=== PATIENT | female | born 1990 | race Two or more races ===

== ENCOUNTER → 2018-01-10 14:19 | Outpatient (CLI) | payer SELFPAY ==
[2018-01-10 17:46] LABS: Chlamydia Trachomatis by PCR Negative (Negative); Neisserai gonorrhoeae by PCR Negative (Negative); Probe Check PASS; Sample Adequacy Control PASS; Specimen Processing Control PASS
[2018-01-17 12:12] LABS: HPV Reflexed? NOT INDICATED
== END ==
PROVIDERS: Visit Provider Obstetrics & Gynecology
DX: Z34.81 Encounter for supervision of other normal pregnancy, first trimester (principal); Z12.4 Encounter for screening for malignant neoplasm of cervix; Z11.3 Encounter for screening for infections with a predominantly sexual mode of transmission
CPT/HCPCS: 87491; 87591; 88175; G0145

== ENCOUNTER → 2018-02-05 11:26 | Outpatient (CLI) | payer SELFPAY ==
[2018-02-05 12:21] LABS: Absolute Lymphocyte Count 2.05 X10^3/ul (0.83-4.51); Absolute Neutrophil Count 5.3 X10^3/uL (2.0-7.7); Basophil# 0.02 X10^3/uL; Basophil% 0.2 % (0-1); Color, Urine Yellow (Yellow); Eosinophil# 0.17 X10^3/uL; Eosinophils% 2.1 % (0-5); Glucose, Dipstick Normal (Normal); Hematocrit 40.7 % (37-47); Hemoglobin 13.2 g/dl (12.0-15.0); Ketone-Dipstick 5 mg/dl (Negative); Leukocyte Esterase-Dipstick 25 /ul (Negative); Lymphocyte # 2.05 X10^3/ul (4.0); Lymphocyte % 25.2 % (19-41); Mean Corp Hgb Conc 32.4 g/gl (32-36); Mean Corpuscular Hgb 24.8 pg (27.0-32.0); Mean Corpuscular Volume 76.5 fL (81-99); Mean Platelet Vol. 10.4 fl (6.2-12.0); Monocyte# 0.57 X10^3/uL; Neutrophil % 65.4 % (47-70); Nitrite-Dipstick Negative (Negative); Occult Blood-Urine Negative /ul (Negative); Platelet Count 273 K/mm3 (150-450); Protein-Dipstick 15 mg/dl (Negative); RBC Distribution Width CV 15.6 % (11.6-14.6); Red Blood Count 5.32 M/mm3 (4.2-5.4); Specific Gravity, Urine 1.015 (1.002-1.030); Urine Bilirubin Dipstick Negative (Negative); Urine Clarity Sl. Cloudy (Clear); Urine Urobilinogen 1 mg/dl (Normal); White Blood Count 8.1 K/mm3 (4.4-11.0)
[2018-02-05 12:25] LABS: POSITIVE COUNT NO; POSITIVE DIFFERENTIAL NO; POSITIVE MORPHOLOGY NO
[2018-02-05 12:42] LABS: Hemoglobin A1c 5.4 % (4.2-6.3)
[2018-02-05 12:50] LABS: Thyroid Stim Hormone (TSH) 1.43 uIU/mL (0.358-3.74)
[2018-02-05 13:33] LABS: HIV - WCH Non-Reactive (Nonreactive); Rubella IgG 79.5 IU/mL
[2018-02-06 09:48] LABS: HEPATITIS B SURFACE AG Negative (Negative); Hep C Antibodies <0.1 s/co ratio (0.0-0.9)
[2018-02-09 02:59] LABS: Prenatal RPR NONREACTIVE (NONREACTIVE)
== END ==
PROVIDERS: Visit Provider Obstetrics & Gynecology
DX: Z34.81 Encounter for supervision of other normal pregnancy, first trimester (principal); Z86.32 Personal history of gestational diabetes
CPT/HCPCS: 36415; 81002; 83036; 84443; 85025; 86703; 86762; 86803; 87340

== ENCOUNTER → 2018-05-30 11:36 | Outpatient (CLI) | payer SELFPAY ==
[2018-05-30 15:49] LABS: Hematocrit 37.4 % (37-47); Hemoglobin 11.7 g/dl (12.0-15.0); Mean Corp Hgb Conc 31.3 g/gl (32-36); Mean Corpuscular Hgb 24.6 pg (27.0-32.0); Mean Corpuscular Volume 78.7 fL (81-99); Mean Platelet Vol. 10.5 fl (6.2-12.0); Platelet Count 280 K/mm3 (150-450); RBC Distribution Width CV 15.9 % (11.6-14.6); RBC Distribution Width SD 45.4 fl (35.1-43.9); Red Blood Count 4.75 M/mm3 (4.2-5.4); White Blood Count 9.2 K/mm3 (4.4-11.0)
[2018-05-30 15:50] LABS: Scan Indicated on CBC? Y/N NO
[2018-05-30 15:55] LABS: Glucose Challenge Gest 1H 50g 149 mg/dL (70-140)
--- OUTSIDE RECORDS SUMMARY | 2018-08-01 09:13 | XMS RPT_ITS ---
:1990 Author Organization OHIP Care Team Providers Name Role Phone Carole Villarreal Attending Unavailable Carole Villarreal Attending Unavailable Carole Villarreal Attending Unavailable PROBLEMS PROBLEMS DATE TYPE CONDITION / CODE ATTENDING STATUS SOURCE 05/30/2018 Unknown Z34.82 - Encounter Carole Villarreal Active [place] for supervision of [facility] other normal Hospital , second Repository trimester / Z34.82(ICD-10) 02/05/2018 Unknown Z34.81 - Encounter Carole Villarreal Active [place] for supervision of Community other normal Hospital , first Repository trimester / Z34.81(ICD-10) 01/12/2018 Unknown Z12.4 - Encounter Carole Villarreal Active [place] for screening for Community malignant neoplasm [facility] / Repository Z12.4(ICD-10) 01/12/2018 Unknown Z11.3 - Encounter Carole Villarreal Active [place] for screening for Community infections with a Hospital [facility] Repository sexual mode of transmission / Z11.3(ICD-10) PROCEDURES PROCEDURES No Procedure Records FoundRESULTS RESULTS CBC-COMPLETE BLOOD CNT Collected: 05/30/2018 Status: F Source: JOSE NO DIFF 11:33 AM [facility] REPOSITORY TYPE CODE TESTS RESULT OUT OF RANGE REFERENCE UNITS LAB L100.1000 4.4-11.0 K/mm3 Normal WBC 9.2 LAB L100.1200 4.2-5.4 M/mm3 Normal RBC 4.75 LAB L100.1300 12.0-15.0 g/dl Low HGB 11.7 LAB L100.1400 37-47 % Normal HCT 37.4 LAB L100.1500 81-99 fL Low MCV 78.7 LAB L100.1600 27.0-32.0 pg Low MCH 24.6 LAB L100.1700 32-36 g/gl Low MCHC 31.3 LAB L100.1810 11.6-14.6 % High RDW CV 15.9 LAB L100.1820 35.1-43.9 fl High RDW SD 45.4 LAB L100.1900 150-450 K/mm3 Normal PLT 280 LAB L100.2000 6.2-12.0 fl Normal MPV 10.5 Performed By: #### L100.0500 #### [facility] [address] [place], [address] GLUCOSE CHALLENGE GEST Collected: 05/30/2018 Status: F Source: DE LANCEY 1H 50G 11:33 AM [facility] REPOSITORY TYPE CODE TESTS RESULT OUT OF RANGE REFERENCE UNITS LAB L501.0250 70-140 mg/dL High GLU GEST 149 50g 1H Performed By: #### L501.0250 #### [facility] [address] [place], [address] CBC W/DIFF, AUTOMATED Collected: 02/05/2018 Status: F Source: JOSE 11:30 AM [facility] REPOSITORY TYPE CODE TESTS RESULT OUT OF RANGE REFERENCE UNITS LAB L100.1000 4.4-11.0 K/mm3 Normal WBC 8.1 LAB L100.1200 4.2-5.4 M/mm3 Normal RBC 5.32 LAB L100.1300 12.0-15.0 g/dl Normal HGB 13.2 LAB L100.1400 37-47 % Normal HCT 40.7 LAB L100.1500 81-99 fL Low MCV 76.5 LAB L100.1600 27.0-32.0 pg Low MCH 24.8 LAB L100.1700 32-36 g/gl Normal MCHC 32.4 LAB L100.1810 11.6-14.6 % High RDW CV 15.6 LAB L100.1820 35.1-43.9 fl Normal RDW SD 43.0 LAB L100.1900 150-450 K/mm3 Normal PLT 273 LAB L100.2000 6.2-12.0 fl Normal MPV 10.4 LAB L100.2100 47-70 % Normal NEUT% 65.4 LAB L100.2200 19-41 % Normal LY% 25.2 LAB L100.2300 0-10 % Normal MONO% 7.0 LAB L100.2400 0-5 % Normal EO% 2.1 LAB L100.2500 0-1 % Normal BASO% 0.2 LAB L100.2550 0.0-0.9 % Normal IM GRAN % 0.100 Result Comment: IG% - Immature Granulocytes (promyelocytes, myelocytes and metamyelocytes) > 1% indicates that a LEFT SHIFT is Present. LAB L100.2620 2.0-7.7 X10 3/uL Normal Absolute Neut 5.3 LAB L100.2720 0.83-4.51 X10 3/ul Normal Absolute Lymph 2.05 Performed By: #### L100.0100 #### [facility] [address] [place], [place], [address] URINALYSIS, ROUTINE Collected: 02/05/2018 Status: F Source: JOSE (DIPSTICK) 11:30 AM [facility] REPOSITORY Order Comment: How was Urine Obtained? Urine, Random TYPE CODE TESTS RESULT OUT OF RANGE REFERENCE UNITS LAB L400.3000 Yellow COLOR Normal Yellow LAB L400.3050 Clear Normal CLARITY Sl. Cloudy LAB L400.3200 Normal mg/dl Normal GLUCOSE, UR Normal LAB L400.3300 Negative mg/dL Normal BILIRUBIN URINE Negative LAB L400.3400 Negative mg/dl High 5 KETONE UR LAB L400.3465 1.002-1.030 Normal SP.GR. DIPSTX 1.015 LAB L400.3550 5.0 - 8.0 pH UR Normal 7.0 LAB L400.3600 Negative mg/dl High PROT 15 DIPSTX LAB L400.3700 Normal mg/dl High 1 UROBILI LAB L400.3750 Negative Normal NITRITE UR Negative LAB L400.3780 Negative /ul Normal OCCULT BLOOD-UR Negative LAB L400.3800 Negative /ul High LEUK 25 ESTERASE Performed By: #### L400.2010 #### [facility] [address] [facility] [place], [place], [id number] HEMOGLOBIN A1C Collected: 02/05/2018 Status: F Source: DE LANCEY 11:30 AM [facility] REPOSITORY TYPE CODE TESTS RESULT OUT OF RANGE REFERENCE UNITS LAB L501.9985 4.2-6.3 % Normal HGB A1C 5.4 Performed By: #### L501.9985 #### [facility] [address] [facility] [place], [place], [address] THYROID STIM HORMONE Collected: 02/05/2018 Status: F Source: DE LANCEY (TSH) 11:30 AM [facility] REPOSITORY TYPE CODE TESTS RESULT OUT OF RANGE REFERENCE UNITS LAB L501.9520 0.358-3.74 uIU/mL Normal TSH 1.43 Performed By: #### L501.9520 #### [facility] [address] [place], [address] RUBELLA IGG Collected: 02/05/2018 Status: F Source: JOSE 11:30 AM [facility] REPOSITORY TYPE CODE TESTS RESULT OUT OF RANGE REFERENCE UNITS LAB L509.4000 IU/mL Normal Rubella IgG 79.5 Result Comment: Antibody results Interpretation of Immune Status < 5 IU/ml Presumed Non-immune 5 - < 10 IU/ml Equivocal > or = 10 IU/ml Presumed Immune Performed By: #### L509.4000, L3890.6005 #### [facility] [address] [place] [address]. [place], [place], [address] HIV - WCH Collected: 02/05/2018 Status: F Source: JOSE 11:30 AM [facility] REPOSITORY TYPE CODE TESTS RESULT OUT OF RANGE REFERENCE UNITS LAB L3890.6005 Nonreactive Normal HIV - WCH Non-Reactive Performed By: #### L509.4000, L3890.6005 #### [facility] [place], [address] T AND S-NO Collected: 02/05/2018 Status: F Source: DE LANCEY CHARGE W/PNP 11:30 AM [facility] REPOSITORY Order Comment: Reason for Type AND Screen/Red Cells: Surgery? N TYPE CODE TESTS RESULT OUT OF RANGE REFERENCE UNITS LAB B10.0800 B Normal BLOOD POSITIVE TYPE GEL LAB B100.4050 Normal Ab SCREEN NEGATIVE GEL Performed By: #### B100.7550 #### [facility] [address] [facility] [place], [place], [address] HEPATITIS B SURFACE Collected: 02/05/2018 Status: F Source: JOSE AG 11:30 AM [facility] REPOSITORY TYPE CODE TESTS RESULT OUT OF RANGE REFERENCE UNITS LAB L3100.0400 Negative Normal HB Negative SURF AG Result Comment: Performed at: [facility] [id number] Power Grader Operator: Juan Francisco Zurita PhD, Phone: [phone] Performed By: #### L3100.0390, L3100.0625 #### [facility] (refer to report for specific site) refer to report for address and phone number HEPATITIS C ANTIBODIES Collected: 02/05/2018 Status: F Source: JOSE 11:30 AM [facility] REPOSITORY TYPE CODE TESTS RESULT OUT OF RANGE REFERENCE UNITS LAB L3100.0650 0.0-0.9 s/co ratio Normal HEP C AB <0.1 Result Comment: Negative: < 0.8 Indeterminate: 0.8 - 0.9 Positive: > 0.9 The CDC recommends that a positive HCV antibody result be followed up with a HCV Nucleic Acid Amplification test (407533). Performed By: #### L3100.0390, L3100.0625 #### [facility] (refer to report for specific site) refer to report for address and phone number RPR Collected: 02/05/2018 Status: F Source: JOSE 11:30 AM [facility] REPOSITORY TYPE CODE TESTS RESULT OUT OF REFERENCE UNITS RANGE LAB L700.5100 NONREACTIVE Normal RPR NONREACTIVE Performed By: #### L700.5100 #### [facility] [address] [place] [address]. [place], [place], [address] CT/NG WCH BY PCR Collected: 01/10/2018 Status: F Source: JOSE 10:45 AM [facility] REPOSITORY TYPE CODE TESTS RESULT OUT OF RANGE REFERENCE UNITS LAB L8200.2100 Negative Normal Chlam Negative Trac PCR LAB L8200.2200 Negative Normal NG by Negative PCR Performed By: #### L8200.2000 #### [facility] [facility] [place], [place], [address] PAP I-G W/RFX HRHPV Collected: 01/10/2018 Status: F Source: JOSE 10:45 AM [facility] REPOSITORY Order Comment: CYTOLOGY INFORMATION: - CLINICAL INFORMATION: - DATE LMP/MENOPAUSE: NO LMP GIVEN LMP - COLLECTION VIAL: Thin Prep Vial - NURSE AIDE SOURCE: CERVICAL/ENDOCERVICAL - COLLECTION TECHNIQUE: BRUSH/SPATULA Specimen Comment: [id number] Specimen Comment: No. of containers..01 ThinPrep Vial TYPE CODE TESTS RESULT OUT OF RANGE REFERENCE UNITS LAB L7400.0800 . Normal DIAGN Comment Result Comment: NEGATIVE FOR INTRAEPITHELIAL LESION AND MALIGNANCY. CELLULAR CHANGES ASSOCIATED WITH INFLAMMATION ARE PRESENT. LAB L7400.0900 . Normal ADEQ Comment Result Comment: Satisfactory for evaluation. Endocervical and/or squamous metaplastic cells (endocervical component) are present. LAB L7400.1400 . Normal PERFORM Comment Result Comment: Praveen Richard, Machine Try Out Setter (ASCP) LAB L7400.2575 . Normal TEST METHOD Comment Result Comment: This liquid based ThinPrep(R) pap test was screened with the use of an image guided system. LAB L7400.2600 . Normal . COMM LAB L7400.2700 . Normal PAPSMR Comment Result Comment: The Pap smear is a screening test designed to aid in the detection of premalignant and malignant conditions of the uterine cervix. It is not a diagnostic procedure and should not be used as the sole means of detecting cervical cancer. Both false-positive and false-negative reports do occur. LAB L7400.2800 . Normal HPV RFLX Comment Result Comment: The HPV DNA reflex criteria were not met with this specimen result therefore, no HPV testing was performed. Performed at: - [facility] [id number] Power Grader Operator: Ruth Le MD, Phone: [phone] Performed By: #### L7400.0350 #### [facility] (refer to report for specific site) refer to report for address and phone number ALLERGIES ALLERGIES No Allergies Records FoundENCOUNTERS ENCOUNTERS ADMIT/DISCHARGE ACCOUNT ADMITTING ENCOUNTER LOCATION SOURCE NUMBER CLASS 05/30/2018 [id number] Ambulatory Jsoe [place] [facility] ing:WOBLAB Repository 02/05/2018 [id number] Ambulatory [place] [facility] ing:WOBLAB Repository 01/10/2018 [id number] Ambulatory [place] [facility] ing:[facility] Repository PAYERS PAYERS ENCOUNTER GUARANTOR PAYER SUBSCRIBER SOURCE 05/30/2018 MEENAKSHI Primary NOT GIVENUNK [place] [id number] [place] Insurance:SELF PAY [facility] [address] [id number]: [phone] Number: Effective Repository [phone] () Date:2018-05-30 02/05/2018 Meenakshi Primary NOT GIVENUNK [place] [id number] [place] Insurance:SELF PAY [facility] [address] [address]Nln: [phone] Number: Effective Repository [phone] () Date:2018-02-05 01/10/2018 Meenakshi Primary NOT GIVENUNK [place] [id number] [place] Insurance:SELF PAY [facility] [address] [address]Oee: [phone] Number: Effective Repository [phone] () Date:2018-01-10
== END ==
PROVIDERS: Visit Provider Obstetrics & Gynecology
DX: Z34.82 Encounter for supervision of other normal pregnancy, second trimester (principal)
CPT/HCPCS: 36415; 82950; 85027

== ENCOUNTER → 2018-06-05 10:00 | Outpatient (CLI) | payer SELFPAY ==
[2018-06-05 10:52] LABS: Glucose GTT-Gestation. Fasting 91 mg/dL (<105)
[2018-06-05 12:05] LABS: Glucose GTT-Gestational 1 Hr 176 mg/dL (<190)
[2018-06-05 13:00] LABS: Glucose GTT-Gestational 2 Hr 145 mg/dL (<165)
[2018-06-05 14:30] LABS: Glucose GTT-Gestational 3 Hr 120 L (<145)
== END ==
PROVIDERS: Family Provider Family Medicine; PCP Family Medicine; Referring Provider Obstetrics & Gynecology; Visit Provider Obstetrics & Gynecology
DX: O24.912 Unspecified diabetes mellitus in pregnancy, second trimester (principal); Z3A.00 Weeks of gestation of pregnancy not specified
CPT/HCPCS: 36415; 82951; 82952

== ENCOUNTER 2018-06-30 13:01 | Emergency (ER) | payer SELFPAY ==
[2018-06-30 13:02] VITALS: BP 134/77; PULSE 110; RESP 18; TEMP 36.2; O2SAT 96; BMI 41.7
--- NOTE | 2018-06-30 13:13 | RAD_ITS ---
STUDY: X-RAY CHEST REASON FOR EXAM: Female, 28 years old. Cough TECHNIQUE: PA and lateral views of the chest. COMPARISON: None. FINDINGS: The lungs are clear and expanded. There is no demonstrated pleural abnormality. Normal size heart. Normal mediastinum and adolfo. Normal visualized pulmonary arteries. Normal visualized aortic arch and descending thoracic aorta. Normal visualized thoracic spine. Normal visualized ribs, clavicles, and shoulders. There is no demonstrated abnormality of the visualized soft tissue structures of the upper abdomen. RAD/Chest PA and Lateral IMPRESSION: No acute cardiopulmonary process. Electronically Signed: Edilson Caballero MD at 13:50 EST , Service support ,
--- NOTE | 2018-06-30 13:15 | ED.VISSUMM ---
- ER Visit Summary Date of Service: 06/30/18 Chief Complaint: Cough, shortness of breath History of Present Illness: The patient is a 28 F presents to the emergency department cough and shortness of breath. Patient symptoms began last weekend. She states that she had fevers, chills, myalgias. She states over the past 3 days, the fever stopped, but she had worsening cough. She had scant sputum. She states that she does feel that she can catch her breath. She denies any chest pain. She does admit to some change in voice and feels like she may have laryngitis. She denies any current sore throat, trouble speaking, or trouble swallowing. Physical Examination: Vital signs reviewed General: Well-nourished, well-developed Head: Normocephalic, atraumatic Eyes: Pupils equal and reactive, extraocular muscles intact Neck, supple, no lymphadenopathy Heart: Regular rate and rhythm Respiratory: No distress, clear bilaterally Abdomen: Soft, nontender, nondistended, no peritoneal signs Back: Nontender Extremities: Nontender, no edema, no cords Skin: Normal color no rash Neuro: Alert and oriented, no focal or lateralizing deficits Test Results: [] Emergency Department Course and Treatment: The patient's symptoms do seem viral in nature. She did have a scant wheeze. She was given a DuoNeb with improvement of aeration. Her chest x-ray shows no focal infiltrate of process. She has no trismus. She has no stridor. I do feel that this is all viral. I am going to continue her on Decadron and an inhaler. I do feel that she is safe for outpatient therapy. The patient is comfortable with this plan of care. Treatment Plan: [] Disposition: Discharge Impression: Viral URI with bronchospasm This note was generated with [employer] dictation software. It may contain incorrect words, spelling, and punctuation that were not noted in review of the chart prior to signing ED Disposition - Plan for ED Patient: Disposition: Home or Assisted Living Instructions: ED Upper Resp Infec No Abx Tx Prescriptions: RX: Albuterol Inhaler [Ventolin Hfa] 2 puff INHALATION Q4H PRN PRN #1 inhaler PRN Reason: Wheezing Dexamethasone [Decadron] 4 mg PO BIDCM #6 tab Referrals: Kostas Collazo [Primary Care Provider] -
[2018-06-30] MEDS: Ipratropium/Albuterol Sulfate 3 ML AMPUL.NEB INHALATION (13:40)
[2018-06-30 13:42] VITALS: PULSE 107; RESP 16; O2SAT 97
[2018-06-30 14:36] VITALS: PULSE 101; RESP 18; O2SAT 97
== END 2018-06-30 14:36 | disposition home or self-care (01) ==
PROVIDERS: Emergency Provider Emergency Medicine; Family Provider Family Medicine; PCP Family Medicine
DX: J06.9 Acute upper respiratory infection, unspecified (principal); J98.01 Acute bronchospasm
CPT/HCPCS: 71046; 94640; 99283

== ENCOUNTER → 2018-07-11 11:37 | Outpatient (CLI) | payer SELFPAY ==
[2018-06-30 13:02] VITALS: BMI 41.7
[2018-07-11 14:37] LABS: AST(SGOT) 24 U/L (15-37); Alanine Aminotransfer ALT/SGPT 43 U/L (13-56); Albumin, Serum 2.8 g/dL (3.2-5.0); Alkaline Phosphatase 111 U/L (45-117); Globulin 4.5 g/dL (2.2-4.2); Protein, Total 7.3 g/dL (6.4-8.2)
== END ==
PROVIDERS: Visit Provider Obstetrics & Gynecology
DX: O26.893 Other specified pregnancy related conditions, third trimester (principal)
CPT/HCPCS: 36415; 80076

== ENCOUNTER → 2018-07-25 14:09 | Outpatient (CLI) | payer SELFPAY ==
[2018-06-30 13:02] VITALS: BMI 41.7
== END ==
PROVIDERS: Visit Provider Obstetrics & Gynecology
DX: Z36.85 Encounter for antenatal screening for Streptococcus B (principal)
CPT/HCPCS: 87081

== ENCOUNTER 2018-08-11 01:34 | Outpatient (CLI) | payer SELFPAY ==
[2018-08-11 02:41] VITALS: BMI 43.1
--- NOTE | 2018-08-13 08:44 | OB.TRI.NOTE ---
History of Present Illness Date of Service: 08/11/18 Reason For Visit: R/O LABOR Date of Service: 08/11/18 Final TYLER: 08/22/18 Gestational age: 38 Weeks and 3 Days History of Present Illness: 38+ week intrauterine with contractions. Presents to rule out labor. Denies any leaking of fluid. Allergies No Known Allergies Allergy (Verified 06/30/18 13:02) NST - FHR Rate Baby A NST Reactive:: Yes FHR Category:: Category I Impression/Plan 38+ week intrauterine with false labor. After monitoring no change in cervix. Reactive nonstress test. Released to home with routine instructions for follow-up if contractions become name stronger or rupture of membrane occurs.
== END 2018-08-11 05:05 | disposition home or self-care (01) ==
LOC: WPOUT 02:06 → WP 02:07
PROVIDERS: Visit Provider Obstetrics & Gynecology
DX: O47.1 False labor at or after 37 completed weeks of gestation (principal); Z3A.38 38 weeks gestation of pregnancy
CPT/HCPCS: 59025; 59050; 99218; G0378

== ENCOUNTER 2018-08-17 06:46 | Inpatient (IN) | payer SELFPAY ==
[2018-08-17 07:29] VITALS: BMI 43.7
[2018-08-17] MEDS: Lactated Ringers 1,000 ML 50 ML IV ×3 (07:45→18:23)
[2018-08-17] MEDS: Oxytocin 30 units/NS 500 ml 30 UNITS/500 ML IV.SOLN IV (08:08)
[2018-08-17 08:14] LABS: Absolute Lymphocyte Count 1.94 X10^3/ul (0.83-4.51); Absolute Neutrophil Count 5.1 X10^3/uL (2.0-7.7); Basophil# 0.01 X10^3/uL; Basophil% 0.1 % (0-1); Eosinophil# 0.11 X10^3/uL; Eosinophils% 1.4 % (0-5); Hematocrit 34.8 % (37-47); Hemoglobin 10.9 g/dl (12.0-15.0); Lymphocyte # 1.94 X10^3/ul (4.0); Mean Corp Hgb Conc 31.3 g/gl (32-36); Mean Corpuscular Hgb 22.5 pg (27.0-32.0); Mean Corpuscular Volume 71.9 fL (81-99); Mean Platelet Vol. 10.4 fl (6.2-12.0); Monocyte% 7.7 % (0-10); Neutrophil # 5.07 X10^3/uL (2.7-7.7); Neutrophil % 65.4 % (47-70); POSITIVE COUNT NO; POSITIVE DIFFERENTIAL NO; POSITIVE MORPHOLOGY NO; Platelet Count 275 K/mm3 (150-450); RBC Distribution Width SD 44.2 fl (35.1-43.9); Red Blood Count 4.84 M/mm3 (4.2-5.4); White Blood Count 7.8 K/mm3 (4.4-11.0)
--- NOTE | 2018-08-17 08:29 | PCM.PN.BLA ---
Progress Note LABOR PROGRESS NOTE Pt feeling poorly, nauseated / dizzy after IV start and blood drawn. IV fluids going position changes made. Afeb BP low EFM 150-160s avg with accels no decelerations UCs - no regular UCs noted CX: anterior, 2 cm/ 80/-3 Vtx well applied to cervix A/P: 39 2/7 wk induction. 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 Discussing his concerns re AROM. Advised AROM would not be performed unless safe to do so. AROM could be performed with benefit of progression of labor , sooner delivery, and less pitocin required. Did not AROM d/t patient's current BP, feeling dizzy, nauseated, etc. Spoke with RN to encourage adequate pitocin. AROM planned later with IUPC to guide pitocin prn.
--- NOTE | 2018-08-17 13:13 | PCM.PN.BLA ---
Progress Note LABOR PROGRESS NOTE Feeling more discomfort with UCs Considering nitrous oxide for labor pain. AVSS Pitocin at 12 miU/min EVM: 140-150s avg variability. Accels noted. Occasional mild variable with quick return UCs q 3-4 mins CX: 3/50/anterior and high Mod consistency AROM copious clear fluid. Pad placed A/P: 39 2/7 wk EGA Induction. children all with brittle hair syndrome. Planning to collect cord blood to send for testing Sees Dr Marce Martins outpatient. continue labor induction Anticipate .
--- NOTE | 2018-08-17 16:20 | PCM.PN.BLA ---
Progress Note 30 2/7 wk induction Uncomfortable , requesting epidural AVSS Pitocin at 12 mIU/min CX: deferred Last check per RN /-2 at 1530 Sitting at bedside breathing through UCs. EFM 140 - 150s avg variability Accels occasional variables UCs q 3- 4mins A/P: 39 2/7 wk induction Plans epidural now. Place epidural. Recheck when comfortable. continue Pitocin per protocol. if inadequate change, consider IUPC to track UC MVUs.
[2018-08-17] MEDS: fentaNYL-bupivacaine (epidural) 100 ML BAG EPIDURAL (16:44)
--- NOTE | 2018-08-17 17:15 | PCM.PN.BLA ---
Progress Note INDUCTION 39 2/7 wk Comfortable w/ epidural AVSS Pitocin at 12 miU/mIn EFM reassuring category I UCs q 3- 4minx CX; /765/-3 high. Vtx with caput A/P: 39 2/7 wk induction female. other children with brittle hair syndrome. Plans to send cord blood to Dr Marce Martins for testing this baby. IUPC and scalp lead placed. Continue Pitocin prn to adequate mVUs Position changes to facilitate rotation and descent. Anticipate .
[2018-08-17] MEDS: Amnioinfusion- 0.9% NS 1,000 ML IV.SOLN. 200 ML INTRA-UTER (19:05)
[2018-08-17] MEDS: Oxytocin 30 units/NS 500 ml 30 UNITS/500 ML IV.SOLN 334 UNITS IV (19:23)
--- NOTE | 2018-08-17 19:35 | DCINST_ITS ---
Discharge Diet: No Restrictions Return to work on:: 10/17/18 May shower in (days): 0 May resume sexual activity in: 4-6 weeks Call your doctor if your incision/area has: Sudden Increased Bleeding, Foul Smelling Discharge Call your doctor if you observe: Fever of 101 or Higher, Inability to urinate, Inability to have a bowel movement, Using more than one pad per hour, Shortness of breath, Chest pain, Calf discomfort, Uncontrolled pain Cleanse incision/area with: Soap & Water Additional Instructions: If you experience any of the following, contact your healthcare provider. * Bleeding that soaks a pad every hour for 2 hours * Fever 100.4 or higher * Unrelieved incision or abdominal pain * Swelling, redness, discharge or bleeding from your incision or episiotomy site * Your incision begins to separate * Problems urinating (including inability to urinate or burning while urinating). * Visual changes * Severe headache * Flu-like symptoms * Pain or redness in one of both of your breasts * Pain, warmth, tenderness or swelling in your legs, especially the calf area * Frequent nausea and vomiting * Symptoms of depression or anxiety If you experience any of the following, call 911 or go to the nearest Emergency Room. * Chest pain * Problems breathing * Seizure activity * Partial or complete paralysis of a body part, slurred speech, weakness or drooping of the face, or a sudden inability to walk or hold your balance Allergies/Adverse Reactions: Allergies No Known Allergies Allergy (Verified 06/30/18 13:02) Medications to take at Discharge Ibuprofen [Motrin] 600 mg PO Q6H PRN PRN #30 tab 08/17/18 The following prescriptions were given: Ibuprofen [Motrin] 600 mg PO Q6H PRN PRN #30 tab PRN Reason: pain or cramping Please Follow Up With: Carole Villarreal MD When: 6 weeks Primary Care Physician: Kostas Collazo [Primary Care Provider] - Test Results: Test results from this visit will be discussed in further detail at your follow- up appointment, if applicable. Proposed Discharge Date: 08/19/18
--- NOTE | 2018-08-17 19:38 | PCM.OPRPT ---
Vaginal Delivery Maternal Presentation: Medically Indicated Induction 39w2d ega admitted for induction of labor Method of Induction: Pitocin Amniotic Membrane Rupture Type: Artificial Rupture of Membrane time: 1300 Amniotic Fluid Description: Clear Final TYLER: 08/22/18 Final TYLER Source: [place] <20 weeks Gestational age: 39 Weeks and 2 Days Date of Procedure: 08/17/18 Pre-Operative Diagnosis: Labor Post-Operative Diagnosis: same Surgery/ Procedure Performed: Spontaneous Vaginal Delivery Anesthesiologist: Bari Fletcher Type of Anesthesia: Epidural Description of Procedure: Noelle progressed to FD then pushed over two contractions to deliver a live female without complication. There was a loose cord around the neck x 2 easily reduced after delivery of the head. After delivery the mouth and nares were suctioned with bulb suction. The baby was stimulated and an active cry was observed within the first minute. Delayed cord clamping was employed. venous cord bloods were collected for the parents for genetic testing. The cord was clamped and cut and baby placed on mom's chest for skin to skin. The placenta delivered spontaneously intact with a centrally located 3VC. The uterus contracted well. Inspection revealed an intact cervix vagina and perineum. Presentation: Vertex Placental Delivery Description: Spontaneous Placenta Disposition: [facility] Percentage of Placenta Abruption: 0 Cord Vessel Description: 3 Vessels Nuchal Cord Compression: With compression Cord Entanglement: Around neck x 2, loose Drain: [place] to straight drain Estimated Blood Loss: 200cc A gender: Female (1 minute): 8 (5 minute): 9 Episiotomy Description: None Laceration: None Medications given after delivery: IV Pitocin Complications: None
[2018-08-17] MEDS: Oxytocin 30 units/NS 500 ml 30 UNITS/500 ML IV.SOLN 167 UNITS IV (19:53)
[2018-08-17] MEDS: Methylergonovine 0.2 MG/ML Ampul IM (20:22)
[2018-08-17] MEDS: Ibuprofen 600 MG Tablet PO (23:57)
[2018-08-18 00:03] VITALS: BP 130/74; PULSE 104; RESP 16; TEMP 36.7; O2SAT 100
[2018-08-18] MEDS: oxyCODONE 5 MG Tablet PO ×2 (03:48→09:38)
[2018-08-18 03:59] VITALS: BP 137/85; PULSE 85; RESP 18; TEMP 36.3
[2018-08-18 06:31] LABS: Hematocrit 31.2 % (37-47); Hemoglobin 9.9 g/dl (12.0-15.0); Mean Corp Hgb Conc 31.7 g/gl (32-36); Mean Corpuscular Hgb 22.6 pg (27.0-32.0); Mean Corpuscular Volume 71.2 fL (81-99); Mean Platelet Vol. 11.3 fl (6.2-12.0); Platelet Count 248 K/mm3 (150-450); RBC Distribution Width CV 17.1 % (11.6-14.6); RBC Distribution Width SD 43.3 fl (35.1-43.9); Red Blood Count 4.38 M/mm3 (4.2-5.4); White Blood Count 10.5 K/mm3 (4.4-11.0)
[2018-08-18 06:34] LABS: Scan Indicated on CBC? Y/N NO
--- NOTE | 2018-08-18 08:30 | PCM.PROGNOTE ---
Subjective: No complaints. Bleeding light. Breast feeding. Objective: Afeb VSS Hgb stable - Physical Exam General: Alert, Oriented x3, Cooperative, No apparent distress Lungs: Clear to auscultation, Normal air movement Cardiovascular: Regular rate, Regular Rhythm Abdomen: Soft, Non Tender, Non-Distended Extremities: No edema Skin: No rashes Neurological: Neuro grossly intact Psych/Mental Status: Normal Affect Comment: Lochia light Vital Signs Temp Pulse Resp BP Pulse Ox 97.4 F L 85 18 137/85 H 100 08/18/18 03:59 08/18/18 03:59 08/18/18 03:59 08/18/18 03:59 08/18/18 00:03 Oxygen Delivery Method Room Air Weight: 255 lb Body Mass Index (BMI) 43.7 Intake and Output for Last 24 Hours 08/16/18 08/17/18 08/18/18 23:59 23:59 23:59 Intake Total 1371 / 1371 Output Total 1600 / 1600 850 / 850 Balance -229 / -229 -850 / -850 Laboratory Tests Past 24 Hrs 08/17/18 08/18/18 07:50 06:20 WBC 10.5 RBC 4.38 Hgb 9.9 L Hct 31.2 L MCV 71.2 L MCH 22.6 L MCHC 31.7 L RDW 17.1 H RDW Differential 43.3 Plt Count 248 MPV 11.3 Blood Type B POSITIVE Antibody Screen NEGATIVE Medical Necessity - Tobacco Use Smoking Status: Never smoker Assessment/Plan Doing well on PP day#1. Continue routine PP care.
[2018-08-18 09:00] VITALS: BP 121/71; PULSE 96; RESP 12; TEMP 36.2
[2018-08-18 12:00] VITALS: BP 111/67; PULSE 87; RESP 14; TEMP 36.4
[2018-08-18] MEDS: Ibuprofen 600 MG Tablet PO (13:18)
[2018-08-18 16:02] VITALS: BP 114/70; PULSE 80; RESP 14; TEMP 36.3
[2018-08-19] MEDS: Ibuprofen 600 MG Tablet PO ×2 (02:47→13:30)
--- NOTE | 2018-08-19 07:59 | PCM.PROGNOTE ---
Subjective: No specific complaints. Bleeding light. Breast feeding. Objective: Afeb VSS - Physical Exam General: Alert, Oriented x3, Cooperative, No apparent distress Lungs: Clear to auscultation, Normal air movement Cardiovascular: Regular rate, Regular Rhythm Abdomen: Soft, Non Tender, Non-Distended Extremities: No edema Neurological: Neuro grossly intact Psych/Mental Status: Normal Affect Comment: Lochia light Vital Signs Temp Pulse Resp BP Pulse Ox 97.4 F L 80 14 114/70 100 08/18/18 16:02 08/18/18 16:02 08/18/18 16:02 08/18/18 16:02 08/18/18 00:03 Oxygen Delivery Method Room Air Weight: 255 lb Body Mass Index (BMI) 43.7 Intake and Output for Last 24 Hours 08/17/18 08/18/18 08/19/18 23:59 23:59 23:59 Intake Total 1371 / 1371 Output Total 1600 / 1600 850 / 850 Balance -229 / -229 -850 / -850 Medical Necessity - Tobacco Use Smoking Status: Never smoker Assessment/Plan Doing well on PP day#2. Cleared for discharge home today. Home going instructions and warnings given.
--- NOTE | 2018-08-19 08:01 | PCM.DC.SUM ---
Discharge Date and Diagnosis Date of Admission: 08/17/18 Date of Discharge: 08/19/18 - Primary Discharge Diagnosis s/p Hospital Course and Treatment Operations: None Procedures: - - Pitocin induction, epidural, Summary of Care Provided: The patient is a 28 year old F [admitted for induction of labor. Progressed to FD pushed to deliver a live without complication. Discharged home on PP day#2.] - Physical Exam Vital Signs Temp Pulse Resp BP Pulse Ox 97.4 F L 80 14 114/70 100 08/18/18 16:02 08/18/18 16:02 08/18/18 16:02 08/18/18 16:02 08/18/18 00:03 Oxygen Delivery Method Room Air Weight: 255 lb Body Mass Index (BMI) 43.7 Intake and Output for Last 24 Hours 08/17/18 08/18/18 08/19/18 23:59 23:59 23:59 Intake Total 1371 / 1371 Output Total 1600 / 1600 850 / 850 Balance -229 / -229 -850 / -850 Discharge Diet: No Restrictions Return to work on:: 10/17/18 May shower in (days): 0 May resume sexual activity in: 4-6 weeks Call your doctor if your incision/area has: Sudden Increased Bleeding, Foul Smelling Discharge Call your doctor if you observe: Fever of 101 or Higher, Inability to urinate, Inability to have a bowel movement, Using more than one pad per hour, Shortness of breath, Chest pain, Calf discomfort, Uncontrolled pain Cleanse incision/area with: Soap & Water Home Medications: Medications to take at Discharge Ibuprofen [Motrin] 600 mg PO Q6H PRN PRN #30 tab 08/17/18 Following Prescrptions Were Given to Patient: Ibuprofen [Motrin] 600 mg PO Q6H PRN PRN #30 tab PRN Reason: pain or cramping Primary Care Physician: Kostas Collazo [Primary Care Provider] - Please Follow Up With: Carole Villarreal MD When: 6 weeks Disposition: Home Minutes spent on discharge:: 15 Patient Condition:: Good Medical Necessity - Tobacco Use Smoking Status: Never smoker Meaningful Use Info Meaningful Use Diagnoses (Choose all that apply): None applicable
[2018-08-19] MEDS: Senna/Docusate Sodium 1 Tablet PO (09:53)
[2018-08-19 10:00] VITALS: BP 116/59; PULSE 96; RESP 20; TEMP 36.2; O2SAT 99
[2018-08-19 14:00] VITALS: BP 137/84; PULSE 97; RESP 16; TEMP 36.3; O2SAT 99
== END 2018-08-19 15:30 | disposition home or self-care (01) | DRG 807 ==
PROVIDERS: Obstetrics & Gynecology; Admitting Provider Obstetrics & Gynecology; Family Provider Family Medicine; PCP Family Medicine; Referring Provider Obstetrics & Gynecology; Visit Provider Obstetrics & Gynecology
DX: O34.03 Maternal care for unspecified congenital malformation of uterus, third trimester (principal); O69.81X0 Labor and delivery complicated by cord around neck, without compression, not applicable or unspecified; Q51.3 Bicornate uterus; Z3A.39 39 weeks gestation of pregnancy; Z37.0 Single live birth
CPT/HCPCS: 59025; 59050; 85025; 85027; 86850; 86900; 99218; J7030; J7120; G0378

== ENCOUNTER 2018-09-11 10:33 | Day surgery (SDC) | payer SELFPAY ==
[2018-09-11] VITALS (7 sets, daily range): BP systolic 85–115; BP diastolic 35–75; PULSE 68–81; RESP 16–20; TEMP 36.2–36.8; O2SAT 97–100; BMI 39.0
--- NOTE | 2018-09-11 06:07 | HP.PCM_ITS ---
History and Physical Date of Admission: 09/11/18 MEENAKSHI KASPER Date of : 1990 HISTORY OF PRESENT ILLNESS: On 09/10/2018, Meenakshi Kasper, a 28 year old female 3 1 0 0 4, presented for: -- GynProblem-Estab Pt -- Maria Isabel is here for evaluation of increased episodes of heavy bleeding in the course. She is 3 weeks She has 4 children. Some increased bleeding may be noted with each subsequent pregnancies. The bleeding is light today. She relates clots have been large up to baseball sized. NO pain reported. LMT -- heavy bleeding which began several days ago. Meenakshi claims it started Monday and has been present several days. It is located in the uterus. Severity is m oderate. An associated sign and symptom is denies cramping. As above. Here for evaluation after vaginal delivery States she has had intermittent heavy bleeding not associated with any pain / cramping She has been bottle feeding. Relates passed a baseball sized clot or possibly placental tissue . Sono results discussed as below: ENDOMETRIAL ECHO: Within the right uterus, there is a 5.5 x 2.5 x 5.9 cm well defined, complex structure that may represent a blood clots vs retained POC. There is blood flow seen in the structure. ALLERGIES: No Known Drug Allergies MEDICATIONS HISTORY: None. REVIEW OF SYSTEMS: GENERAL - Denies fever, or chills SKIN - Denies skin changes EYES - wears eye glasses EARS - Denies difficulty hearing NOSE - Denies nasal congestion or bleeding MOUTH - Denies sore throat or difficulty swallowing NECK - Denies pain or swelling RESPIRATORY - Denies shortness of breath or wheezing CARDIOVASCULAR - Denies palpitations or chest pain GASTROINTESTINAL - Denies nausea, vomiting, diarrhea, constipation GENITOURINARY - intermittent episodes of heavy bleeding with clots MUSCULOSKELETAL - Denies joint or muscle pain NEUROLOGICAL - Denies localized numbness or weakness PSYCHIATRIC - Denies depression or anxiety ENDOCRINE - Denies heat or cold intolerance, weight loss or gain HEMATO-IMMUNOLOGIC - Denies excessive bleeding with cuts PAST HISTORY: Breast/Ovarian/Colon Cancers - Denies Infections - Chicken pox Illnesses - mild seasonal allergies Accidents - no injuries of consequence History of Abnormal PAPS - Denies Hospitalizations - Childbirth SURGICAL HISTORY: 1. none MENSTRUAL HISTORY: LMP Known?- , LMP - 07/11/18, Age Onset Menarche - 9 PAST PREGNANCIES: Total Pregnancies - 4; Full Term Pregnancies - 3; Premature - 1; Abortions, Induced - 0; Abortions, Spontaneous - 0; Ectopics - 0; Multiple Births - 0; Living Children - 4 FAMILY HISTORY: Father - Heart disorder; Father - Age 43, kidney disease; Brother - Asthma; SOCIAL HISTORY: Alcohol Use - None Smoking - Never Diet - balanced Diet, caffeine < 2 drinks per day and Water intake tries for 10 8oz glasses Lifestyle - Exercise - walking 20 minutes 4x/wk Seat Belt Use - always Employer - homemaker Illicit Drug Use - denies use of street drugs Sexual Activity - Place of - [place] Spouse-Sig Other Name - Deniz Spouse-Sig Other Occupation - [employer] Spouse-Sig Other Phone No - [phone] Children Name(s) - Popeye, Gael, Zaida Sosa Control - condoms PHYSICAL EXAMINATION BP- 120/74 Sitting, Right arm, regular cuff Weight- 229.00 lbs Height- 63.00 inch BMI:40.65 CONSTITUTIONAL - NAD, well nourished, and well developed HEENT - Normocephalic, PERRLA, EOMI NECK - no nuchal rigidity BREAST - deferred EXTREMITIES - No edema or calf tenderness NEUROLOGICAL - Cranial nerves II-XII grossly intact PSYCHIATRIC - A and O to time, place, person, mood and affect PELVIC - PELVIC SONO with thickened ES and ? POC vs retained clot on R horn ASSESSMENT: 1. Delayed And Secondary Hemorrhage 2. Bicornate Uterus PLAN BY DIAGNOSIS: 1. Bicornate Uterus and Delayed And Secondary Hemorrhage Reviewed sono findings and advised suction D and C needed. Uncertain if clot vs retained POC Reviewed R,B,A of suction D and C. Will schedule this for this week RTO In 2 wk after surgery for follow up / or may wait to discuss all at planned check. The visit was approximately 20 minutes in length with most of the time spent in discussion and counseling. New Prescription(s): sertraline 25 mg tablet daily 30 Refills 0 ADDENDUM: No changed to above H and P. Pt with intermittent bleeding since this H and P generated. All qeutions answered. proceed with surgery: Suction D and C.
--- NOTE | 2018-09-11 12:00 | UTER_PTH ---
PATIENT: MEENAKSHI SLATER LOC: [facility] U#:[id number] AGE/SX: 28/F ROOM: RE09/11/[address]: Dr. Carole Villarreal MD : 1990 BED: DIS: 09/11/2018 SPEC #: [id number] RECD: 09/11/18 15:48 STATUS: [place] PERFECTO #: [id number] CRAIG: 09/11/18 12:[address]: Carole Villarreal DEPT: SURGICAL PATHOLOGY RECD BY: Tommy Holley ENTERED: 09/12/18 10:46 SP TYPE: UTERINE CO OTHR DR: Dr. Kostas Collazo MD Tissues: Uterine cervix, NOS Procedures: Surgery Specimen Level IV HEADER OPERATION: Dilation and curettage, suction PRE-OP DIAGNOSIS: Delayed and secondary hemorrhage; bicornate uterus TISSUE SUBMITTED: Uterine curettings MICROSCOPIC DIAGNOSIS Uterine curettings: Degenerative chorionic villi and decidual tissue present; clinically delayed and secondary hemorrhage. Chronic endometritis. CE:bruno 09/13/18 COMMENT Case has been reviewed in consultation with Dr. Cobb who concurs with the above diagnosis. IDC:OBEY MICROSCOPIC DESCRIPTION Slides are reviewed. GROSS DESCRIPTION Received in fixative is one container labeled with the patient's name and designated uterine curettings. The specimen consists of multiple fragments of blood clot mixed with hemorrhagic soft tissue that in aggregate measure 8 x 8 x 2.5 cm. No tissue or placental tissue is identified. Tax Manager tissue is submitted in three cassettes. / OBEY:bruno 09/12/18 TC:3 CPT: 04641
[2018-09-11 12:15] LABS: Hemoglobin 11.7 g/dl (12.0-15.0); Mean Corp Hgb Conc 31.6 g/gl (32-36); Mean Corpuscular Hgb 22.4 pg (27.0-32.0); Mean Corpuscular Volume 70.7 fL (81-99); Mean Platelet Vol. 10.7 fl (6.2-12.0); Platelet Count 311 K/mm3 (150-450); RBC Distribution Width CV 17.7 % (11.6-14.6); RBC Distribution Width SD 45.1 fl (35.1-43.9); Red Blood Count 5.23 M/mm3 (4.2-5.4)
[2018-09-11 12:16] LABS: Scan Indicated on CBC? Y/N NO
--- NOTE | 2018-09-11 12:35 | DCINST_ITS ---
Discharge Diet: No Restrictions Discharge Activity: May not drive while taking narcotic pain medications., May Shower, May Take a Tub Bath Return to work on:: 09/12/18 May resume sexual activity in: 2 weeks Call your doctor if you observe: Fever of 101 or Higher, Using more than one pad per hour, Uncontrolled pain Additional Instructions: You may take two Aleve or three Ibuprofen every 8 hr as needed for cramping. Allergies/Adverse Reactions: Allergies No Known Allergies Allergy (Verified 09/11/18 10:54) Medications to take at Discharge Sertraline HCl [Zoloft] 25 mg PO DAILY 09/10/18 Primary Care Physician: Kostas Collazo [Primary Care Provider] - Test Results: Test results from this visit will be discussed in further detail at your follow- up appointment, if applicable. Please Follow Up With: Carole Villarreal MD - [phone] When: 3 wk as scheduled. Proposed Discharge Date: 09/11/18
[2018-09-11 12:37] LABS: Thyroid Stim Hormone (TSH) 2.09 uIU/mL (0.358-3.74)
[2018-09-11] MEDS: Methylergonovine 0.2 MG/ML Ampul IM (13:03)
[2018-09-11] MEDS: Silver Nitrate (BKC) 1 EACH (13:18)
[2018-09-11] MEDS: miSOPROStol 200 MCG Tablet 1000 MCG RECTAL (13:27)
[2018-09-11] MEDS: HYDROcodone Bitartrate/Apap 5/325 Tablet PO (14:33)
--- NOTE | 2018-09-11 19:49 | PCM.OPRPT ---
Report of Operation Date of Procedure: 09/11/18 Pre-Operative Diagnosis: delayed hemorrhage. Bicornuate uterus. thickened endometrial stripe with possible retained POC, R uterus Post-Operative Diagnosis: same Surgery/Procedure Performed:: Suction D and C Description of Surgical Findings:: OPERATIVE FINDINGS: Parous cervix, dilates easily to admit 8 mm suction curette tip. R horn sound to 10 cm with tissue vs clot retrieved. Good crei noted in all quadrants. L horn 7 cm sound minimal tissue. good crei Brisk bleeding upon completion of the curettage. Abrasion, superficial laceration at anterior R vaginal wall/ introitus. AgNO3 applied and area oversewn with single fig of 8 stitch of 4-0 vicryl. Medications given for uterine bleeding : IV pitocin 30 IU/ 500 cc Methergine 0.2 mg IM L thigh Cytotec 1000 mcg rectal dose x one. Type of Anesthesia:: MAC - with paracervical block per Carole Villarreal MD Anesthesiologist: Bari Fletcher MD Specimen's removed: endometrial curettings, possible POC. Clots Drains: Bebo mayberry prior to surgery Estimated Blood Loss (mL): 150 cc Fluids Replaced: LR Description of Procedure: Narrative Account: After the risks, benefits, alteratives of the procedure were reviewed with the patient informed consent was obtained. The patient was taken to the OR with IV running and placed in dorsal supine position on the operating table. She was given MAC IV sedation, and then repositioned to the dorsal lithotomy position and was prepped and draped in the usual sterile fashion. The bladder was drained with a red rubber catheter. A Graves speculum was placed, the cervix identified and a paracervical block of 10cc of 1% lidocaine without epinephrine was instilled at the 2:00, 4:00, 8:00 and 10:00 positions. The anterior lip of the cervix was then grasped with a single toothed tenaculum. The cervix was then easily dilated to allow admission of an 8 mm curved suction curette tip. The suction curette was then placed to the right uterine fundus, suction applied, and tissue withdrawn and set aside for later pathology. A sharp curettage was performed and good Crei was noted in all quadrants of the uterus. The same procedure was repeated for the L uterine horn. Good crei was noted. Brisk bleeding then ensued. IV pitocin was hung and given by pressure One final pass was conducted with the suction curette and any remaining products of conception and clots were removed. Bimanual massage was performed. Methergine 0.2 mg given IM in L thigh. Cytotec 1000 mcg GA was also given. Good response to meds was noted. A small laceration at the R anterior introitus was noted and oversewn with 4-0 chromic stitch. excellent hemostasis was then noted. A sponge stick was then used to remove any remaining tissue and blood from the upper vagina and cervix . All instruments were then removed from the vagina and cervix. Excellent hemostasis was again noted. The patient was awakened from general anesthesia and then transferred to her recovery room bed in stable condition after tolerating the procedure well. Sponge , instrument, and needle counts were correct x two. Medications given intraoperatively included: IV pitocin , Methergine 0.2 mg IM x one, and Cytotec 1000 mcg GA x one. For a complete listing of medications given intraoperatively, please see the anesthesia record. - Admit VTE Documentation VTE Present on Admission: No VTE Mechan Device Prophylaxis: SCD's VTE Pharm Prophylaxis ordered?: No
== END 2018-09-11 14:57 | disposition home or self-care (01) ==
LOC: SDC 10:40 → AC 10:45
PROVIDERS: Family Provider Family Medicine; PCP Family Medicine; Referring Provider Obstetrics & Gynecology; Visit Provider Obstetrics & Gynecology
PROC: (CPT 59160; principal; 2018-09-11 11:45)
DX: O72.2 Delayed and secondary postpartum hemorrhage (principal); Q51.3 Bicornate uterus; N99.71 Accidental puncture and laceration of a genitourinary system organ or structure during a genitourinary system procedure; Y65.8 Other specified misadventures during surgical and medical care; Y92.234 Operating room of hospital as the place of occurrence of the external cause
CPT/HCPCS: 00940; 59160; 36415; 84443; 85027; 88305; J7120

== ENCOUNTER → 2020-09-14 09:54 | Outpatient (CLI) | payer SELFPAY ==
[2018-09-11 10:54] VITALS: BMI 39.0
[2020-09-14 12:28] LABS: Estradiol 36.5 pg/mL; Follicle Stimulating Hormone 6.6 mIU/mL; Luteinizing Hormone 5.1 mIU/mL; T4 Free Direct 1.03 ng/dL (0.76-1.46); Thyroid Stim Hormone (TSH) 2.65 uIU/mL (0.358-3.74)
[2020-09-14 12:32] LABS: Progesterone Level 0.54 ng/mL (See Comment)
[2020-09-16 20:43] LABS: HPV APTIMA, High Risk Negative (Negative)
== END ==
PROVIDERS: PCP Family Medicine; Visit Provider Student in an Organized Health Care Education/Training Program
DX: N92.6 Irregular menstruation, unspecified (principal); Z12.4 Encounter for screening for malignant neoplasm of cervix
CPT/HCPCS: 36415; 82670; 83001; 83002; 84144; 84439; 84443; 87624; 88175; G0145